=== PATIENT | male | born 1990 | race Two or more races ===

== ENCOUNTER 2017-11-27 00:08 | Emergency (ER) | payer OTHER ==
[~2017-11-27] VITALS: Ht 154.9 cm; Wt 65.8 kg
[2017-11-27 00:26] VITALS: Ht 154.9 cm; Wt 65.8 kg
[2017-11-27 00:58] VITALS: BP 151/88
== END 2017-11-27 00:58 | disposition home or self-care (01) ==
LOC: ED 00:08
DX: L50.0 Allergic urticaria (principal)